=== PATIENT | female | born 1955 | race Caucasian/White ===

== ENCOUNTER 2023-08-23 13:48 | Outpatient (CLI) | payer MEDICARE, SELFPAY ==
--- NOTE | ~2023-08-23 | MR_ITS ---
EXAMINATION: MR brain/brain stem wo/w con DATE: 08/23/2023 15:51 INDICATION: Multiple sclerosis. TECHNIQUE: Magnetic resonance imaging (MRI) of the brain and brainstem was performed without and with 10 mL MultiHance intravenous contrast. COMPARISON: None. FINDINGS: There is diffuse brain volume loss. There is extensive confluent increased T2-weighted sign al intensity in the cerebral white matter with a periventricular predominance. There is increased T2- weighted signal intensity in the floridalma involving the corticospinal tracts. There are old infarcts in t he bilateral basal ganglia. There is cystic encephalomalacia in left frontal lobe. There are changes of left-sided craniotomy. Cystic areas in the white matter in right frontal parietal region may be pr ominent perivascular spaces or chronic encephalomalacia. There is no acute ischemic infarct or abnorm al mass lesion. There are foci of old blood products in the bilateral basal ganglia and cerebral asia spheres. The ventricles are normal in size for the degree of brain volume loss. The orbits are normal . The paranasal sinuses are clear. There is a small left mastoid effusion. IMPRESSION: 1. 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 Chronic encephalomalacia in left frontal lobe. Cystic areas in the white matter in right frontal parietal region may be prominent perivascular spaces or ch ronic encephalomalacia. 2. Extensive nonspecific cerebral white matter disease and pontine disease, which likely represents c hronic small vessel ischemic disease and/or multiple sclerosis. Reviewed, dictated and finalized at location [facility]. IMPRESSION: 1. 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 Chronic encephalomalacia in left frontal lobe. Cystic areas in the white matter in right frontal parietal regio n may be prominent perivascular spaces or chronic encephalomalacia. 2. Extensive nonspecific cerebral white matter disease and pontine disease, whi ch likely represents chronic small vessel ischemic disease and/or multiple scle rosis.
--- NOTE | ~2023-08-23 | MR_ITS ---
MRI of the cervical spine Clinical History: Multiple sclerosis Technique: Axial T2-weighted and gradient images, and sagittal T1-weighted, T2-weighted, and STIR santy ges were acquired. Following intravenous administration of 10 cc MultiHance gadolinium, T1-weighted f at-sat imaging was performed in the axial and sagittal planes. Findings: There is no acute fracture or subluxation of the cervical spine. Vertebral bodies maintain normal height and alignment. No bone marrow signal abnormality seen. At C2-C3, there is no significant disc bulge or herniation. There is mild facet arthropathy. No spina l canal stenosis, cord compression or neural foraminal narrowing. At C3-C4, there is mild to moderate degenerative distended. There is mild disc and osteophyte complex , with minimal flattening the ventral cord. There is mild bilateral neural foraminal narrowing, right worse than left, with mild facet arthropathy. At C4-C5, there is mild to moderate degenerative disc narrowing. There is disc osteophyte complex, mo st prominent at the right paracentral to right foraminal region, with associated right neural foramin al narrowing. Left neural foramen may be minimally narrowed as well, with mild bilateral facet arthro nicky. There is mild canal stenosis without gail cord compression. At C5-C6, there is advanced degenerative disc narrowing. There is mild disc osteophyte complex, with mild canal stenosis but no gail cord compression. There is bilateral neural foraminal narrowing. At C6-C7, there is advanced degenerative disc narrowing. No disc bulge or herniation. No spinal canal stenosis or cord compression. Possible minimal bilateral neural foraminal narrowing, right worse dilan n left. No abnormal signal seen in the spinal cord. Paravertebral soft tissues are unremarkable. No abnormal postcontrast enhancement identified. Impression: Moderate degenerative spondylosis, as above. No abnormal signal in the spinal cord. Reviewed, dictated and finalized at location . Impression: Moderate degenerative spondylosis, as above. No abnormal signal in the spinal cord.
--- NOTE | ~2023-08-23 | MR_ITS ---
MRI of the thoracic spine Clinical History: Multiple sclerosis Technique: Axial T2-weighted and gradient images, and sagittal T1-weighted, T2-weighted, and STIR santy ges were acquired. Following intravenous administration of 10 cc MultiHance gadolinium, T1-weighted f at-sat imaging was performed in the axial and sagittal planes. Findings: There is no fracture or subluxation of the thoracic spine. Vertebral bodies maintain normal height and alignment. No significant bone marrow signal abnormality seen. There is no significant disc bulge or herniation at any thoracic level. No spinal canal stenosis or c ord compression in the thoracic spine. Neural foramina are relatively well preserved throughout the t horacic spine. No abnormal cyst signal seen in the spinal cord. No epidural mass or collection seen. Paravertebral s oft tissues are unremarkable. No abnormal postcontrast enhancement identified. Impression: No evidence for multiple sclerosis involving the thoracic spinal cord. No significant abnormality identified. Reviewed, dictated and finalized at [facility]. Impression: No evidence for multiple sclerosis involving the thoracic spinal cord. No significant abnormality identified.
== END 2023-08-23 13:49 ==
LOC: MICIMG 13:49
PROVIDERS: PCP Psychiatry & Neurology Neurology; Visit Provider Psychiatry & Neurology Neurology
DX: G35 Multiple sclerosis (principal); M43.02 Spondylolysis, cervical region; Z86.73 Personal history of transient ischemic attack (TIA), and cerebral infarction without residual deficits; G93.89 Other specified disorders of brain; R90.82 White matter disease, unspecified
CPT/HCPCS: 70553; 72156; 72157; A9577